=== PATIENT | female | born 1990 | race Caucasian/White ===

== ENCOUNTER 2021-06-04 09:00 | Outpatient (CLI) | payer BC, SELFPAY ==
[2021-06-04 08:34] VITALS: BP 135/88; PULSE 118; RESP 18; TEMP 36.8; O2SAT 97; BMI 36.3
[2021-06-04 10:36] VITALS: BP 117/76; PULSE 98; RESP 17; TEMP 36.7; O2SAT 99
[2021-06-04 11:40] VITALS: BP 121/81; PULSE 105; RESP 18; TEMP 36.7; O2SAT 99
== END 2021-06-04 09:01 | disposition home or self-care (01) ==
LOC: OPS 09:26
PROVIDERS: Visit Provider Family Medicine
DX: U07.1 COVID-19 (principal)
CPT/HCPCS: 96365